=== PATIENT | female | born 1970 | race Caucasian/White ===

== ENCOUNTER 2019-02-13 18:13 | Emergency (ER) | payer OTHER ==
[~2019-02-13] VITALS: Ht 167.6 cm; Wt 139.7 kg
[2019-02-13] MEDS ORDERED: PROZAC20 MG PO (18:33)
[2019-02-13] MEDS ORDERED: ATENOLOL100 MG PO (18:33)
[2019-02-13] MEDS ORDERED: LISINOPRIL40 MG PO (18:33)
[2019-02-13] MEDS ORDERED: HYDROCHLOROTHIA50 MG PO (18:33)
[2019-02-13] MEDS ORDERED: CLONAZEPAM1 MG PO (18:34)
[2019-02-13] MEDS ORDERED: MELATONIN10 M2 PO (18:34)
[2019-02-13] MEDS ORDERED: BUSPIRONE HCL15 MG PO (18:34)
[2019-02-13] MEDS ORDERED: NAPROXEN500 MG PO (18:35)
[2019-02-13] MEDS ORDERED: ROBAXIN-750750 MG PO (18:35)
[2019-02-13] MEDS ORDERED: NEURONTIN100 MG PO (18:35)
== END 2019-02-13 19:42 | disposition home or self-care (01) ==
LOC: ED 18:13
DX: M25.511 Pain in right shoulder (principal); G89.29 Other chronic pain; I10 Essential (primary) hypertension; Z87.891 Personal history of nicotine dependence; Z88.2 Allergy status to sulfonamides; Z88.5 Allergy status to narcotic agent; Z79.899 Other long term (current) drug therapy
CPT/HCPCS: 99283

== ENCOUNTER 2025-04-29 10:58 | Emergency (ER) | payer OTHER, MEDICARE ==
[~2025-04-29] VITALS: Ht 167.6 cm; Wt 143.8 kg
[~2025-04-29 10:58] MED LIST: ATENOLOL100 MG PO; BUSPIRONE HCL15 MG PO; CLONAZEPAM1 MG PO; HYDROCHLOROTHIA50 MG PO; LISINOPRIL40 MG PO; MELATONIN10 M2 PO; NAPROXEN500 MG PO; NEURONTIN100 MG PO; PROZAC20 MG PO; ROBAXIN-750750 MG PO
--- OUTSIDE RECORDS SUMMARY | 2025-04-29 11:05 | XMS ---
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 Leonela has no Care Guidelines for this patient. Negro VISIT COUNT (12 MO.) [address] [facility] (Sherri Polanco) [address] [facility] TOTAL 7 NOTE: Visits indicate total known visits. ED/C VISIT TRACKING (12 MO.) 04/29/2025 10:[address] [facility] [place] TYPE: Emergency COMPLAINT: - ABDOMINAL PAIN 04/18/2025 21:52 [facility] Sherri MERRILL ([place]) TYPE: Emergency DIAGNOSES: - Cramp and spasm - Localized edema - Both leg pain - Leg Pain (Non-traumatic) 03/23/2025 00:35 [facility] Sherri MERRILL ([place]) TYPE: Emergency DIAGNOSES: - Chest pain, unspecified - Chest Pain 11/24/2024 09:55 [facility] Sherri MERRILL ([place]) TYPE: Emergency DIAGNOSES: - Diverticulitis of intestine, part unspecified, without perforation or abscess without bleeding - Abd pain - Abdominal Pain 10/26/2024 10:45 [facility] Sherri Polanco [place] (Sherri Polanco) TYPE: Emergency DIAGNOSES: - Constipation, unspecified - Diverticulitis of intestine, part unspecified, without perforation or abscess without bleeding - Abdominal Pain - EMS 08/31/2024 14:34 [facility] [place] (Sherri Polanco) TYPE: Emergency DIAGNOSES: - Calculus of bile duct without cholangitis or cholecystitis without obstruction - Calculus of bile duct without cholangitis or cholecystitis without obstruction - Calculus of gallbladder without cholecystitis without obstruction - Calculus of gallbladder without cholecystitis without obstruction - Abdominal Pain - sharp pain in rt side ribs 05/17/2024 19:05 [facility] [place] (Sherri Polanco) TYPE: Emergency DIAGNOSES: - Chest pain, unspecified - chest pain INPATIENT VISIT TRACKING (12 MO.) No inpatient visits to display in this time frame [email or web address]
[2025-04-29 13:02] LABS: BLOOD/HGB, URINE NEGATIVE (Negative); KETONE, URINE NEGATIVE (Negative); LEUK ESTERASE, URINE NEGATIVE (negative); NITRITE, URINE NEGATIVE (negative)
[2025-04-29] MEDS ORDERED: HYDROXYZINE HCL50 MG PO (13:02)
[2025-04-29] MEDS ORDERED: ZANAFLEX4 M1 PO (13:03)
[2025-04-29 13:31] LABS: BASOPHILS 0.6 % (0.1-1.2); EOSINOPHILS 3.8 % (0.7-5.8); LYMPHOCYTES 18.2 % (19.3-51.7); MCH 27.5 PG (25.6-32.2); MCHC 31.8 g/dL (32.2-35.5); MCV 86.5 fL (79.4-94.8); MONOCYTES 7.9 % (4.7-12.5); NEUTROPHILS 69.1 % (34.0-71.1); RBC 4.58 M/uL (3.93-5.22)
[2025-04-29 13:51] LABS: ALT (SGPT) 50.0 U/L (14-59); AST (SGOT) 26.0 U/L (15-37); GLOMERULAR FILTRATION RATE,EST 79.0 mL/min (>60); PROTEIN, TOTAL 7.6 g/dL (6.4-8.2); UREA NITROGEN 18.0 mg/dL (7-18)
[2025-04-29] MEDS ORDERED: HYDROmorphone HCL 1 MG/ML SYR IV PRN (15:30)
[2025-04-29] MEDS ORDERED: CIPRO500 MG PO (19:53)
[2025-04-29] MEDS ORDERED: HYDROCODON-ACE1 EA10 PO (19:53)
[2025-04-29] MEDS ORDERED: METRONIDAZOLE500 MG PO (19:53)
[2025-04-29] MEDS ORDERED: CIPROFLOXACIN 500 MG TAB PO ONE (20:00)
[2025-04-29] MEDS ORDERED: HYDROCODONE BIT/ACETAMINOPHEN 5/325 MG 1 TAB HOME.PACK PO PRN (20:00)
[2025-04-29] MEDS ORDERED: metroNIDAZOLE 250 MG HOME.PACK PO ONE (20:00)
== END 2025-04-29 20:26 | disposition home or self-care (01) ==
LOC: ED 10:58
PROVIDERS: Emergency Medicine
DX: K57.32 Diverticulitis of large intestine without perforation or abscess without bleeding (principal); I10 Essential (primary) hypertension; Z79.899 Other long term (current) drug therapy; Z88.2 Allergy status to sulfonamides; Z88.5 Allergy status to narcotic agent; Z87.891 Personal history of nicotine dependence
CPT/HCPCS: 36415; 74177; 80053; 81003; 83690; 85025; 96374; 96375; 96376; 99284-25; A9270; J1171; J2405